=== PATIENT | male | born 1965 | race Two or more races ===

== ENCOUNTER 2024-06-27 07:21 | Emergency (ER) | payer SELFPAY ==
[~2024-06-27] VITALS: Ht 175.3 cm; Wt 97.5 kg
[2024-06-27] MEDS ORDERED: ASPIRIN 81 MG TAB.CHEW ONE (07:48)
[2024-06-27] MEDS ORDERED: MORPHINE SULFATE INJ 4 MG/ML DISP.SYRIN ONE ×2 (07:48→10:39)
[2024-06-27] MEDS ORDERED: ONDANSETRON HCL/PF 4 MG/2 ML VIAL ONE (07:48)
[2024-06-27] MEDS: ASPIRIN 81 MG TAB.CHEW PO ONE (07:49)
[2024-06-27] MEDS: MORPHINE SULFATE INJ 2 MG/ML DISP.SYRIN IV ONE (07:49)
[2024-06-27] MEDS: ONDANSETRON HCL/PF 4 MG/2 ML VIAL IV ONE (07:49)
[2024-06-27 08:01] LABS: BASOPHILS % (AUTO) 0.5 % (0.0-2.0); EOSINOPHILS # (AUTO) 0.2 K/uL (0.0-0.7); EOSINOPHILS % (AUTO) 2.5 % (0.0-6.0); HEMATOCRIT 45 % (39-51); HEMOGLOBIN 15.4 g/dL (13.5-17.5); LYMPHOCYTES # (AUTO) 2.3 K/uL (0.8-4.8); LYMPHOCYTES % (AUTO) 29.4 % (20.0-44.0); MEAN CORPUSCULAR HEMOGLOBIN 31 PG (26.0-33.0); MEAN CORPUSCULAR HGB CONC 34 g/dl (31.0-36.0); MEAN CORPUSCULAR VOLUME 91 fL (80-96); MONOCYTES # (AUTO) 0.7 K/uL (0.1-1.30); MONOCYTES % (AUTO) 9.2 % (2.0-12.0); NEUTROPHILS # (AUTO) 4.5 K/uL (1.8-8.9); NEUTROPHILS % (AUTO) 58.4 % (43.0-81.0); PLATELET COUNT (AUTO) 220 K/uL (150-450); RED CELL DISTRIBUTION WIDTH 14.3 % (11.5-15.0); WHITE BLOOD COUNT (AUTO) 7.8 K/uL (4.3-11.0)
[2024-06-27 08:08] LABS: INR 1.01 (0.91-1.10); PARTIAL THROMBOPLASTIN TIME 25.6 SEC (24.3-34.3); PROTHROMBIN TIME 10.7 SECS (9.2-11.1)
[2024-06-27 08:18] LABS: CALCIUM, SERUM 8.9 mg/dL (8.5-10.1); CARBON DIOXIDE 23 mmol/L (21-32); CHLORIDE 108 mmol/L (98-107); CREATININE 1.1 mg/dL (0.6-1.3); GLUCOSE 126 mg/dL (74-106); POTASSIUM 4.2 mmol/L (3.5-5.1); SODIUM SERUM 140 mmol/L (136-145); UREA NITROGEN, BLOOD 18 mg/dL (7-18)
[2024-06-27 09:35] LABS: NT-PRO BNP 12 pg/mL (0-125)
[2024-06-27 10:30] VITALS: TEMP 98.1
[2024-06-27] MEDS ORDERED: MAG HYDROX/AL HYDROX/SIMETH 30 ML UDC ONE (10:39)
[2024-06-27] MEDS ORDERED: NITROGLYCERIN 0.4 MG/TAB BOTTLE ONE (10:39)
[2024-06-27] MEDS ORDERED: FAMOTIDINE/PF INJ 20 MG/2 ML VIAL IV ONE (10:39)
[2024-06-27] MEDS: FAMOTIDINE/PF INJ 20 MG/2 ML VIAL IV ONE (10:40)
[2024-06-27] MEDS: MAG HYDROX/AL HYDROX/SIMETH 30 ML UDC PO ONE (10:40)
[2024-06-27] MEDS: MORPHINE SULFATE 8 MG/ML VIAL IV ONE (10:40)
[2024-06-27] MEDS: NITROGLYCERIN 0.4 MG/TAB BOTTLE SL ONE (10:41)
[2024-06-27 12:00] VITALS: BP 138/78; O2SAT 99
== END 2024-06-27 12:01 | disposition home or self-care (01) ==
LOC: ER 07:33
DX: R07.9 Chest pain, unspecified (principal); R06.02 Shortness of breath; R11.0 Nausea
CPT/HCPCS: 99285; 96374; 96375; 71045; 93005; 96376; 85025; 80048; 85378; 36415; 84443; 84484 ×2; 85730; 83880; J2270 ×3; J3490; J2405